=== PATIENT | female | born 1985 | race Caucasian/White ===

== ENCOUNTER 2019-05-28 09:27 | Inpatient (IN) | payer OTHER ==
[~2019-05-28] VITALS: Ht 167.6 cm; Wt 68.9 kg
--- NOTE | 2019-05-28 09:35 | NUR ---
PACIENTE REFIERE DOLOR PELVICO DESDE HACE DOS ROSAS.EVALUADA Y TRASLADADA [facility]
--- NOTE | 2019-05-28 10:45 | NUR ---
, ORIENTA AL PACIENTE SOBRE SONOGRAMA Y MUESTRAS DE TOÑA A SER COLECTADAS [place] ORDEN MEDICA. PACIENTE REFIERE ENTENDER. MR. VYAS PROCEEDE A COLECTAR LAS MUESTRAS UTILIZANDO MEDIDAS ASEPTICAS Y LAS ENVIA AL LABORATORIO. SE ORIENTA AL PACIENTE SOBRE SONOGRAMA Y PACIENTE REFIERE ENTENDER.
== END 2019-05-30 13:31 | disposition designated cancer center or children's hospital (05) | DRG 760 ==
LOC: ER 09:27 → OB/GYN 13:50
PROVIDERS: ADMIT Obstetrics & Gynecology
PROC: BU4CZZZ Ultrasonography of Uterus and Ovaries (ICD-10-PCS; 2019-05-28)
PROC: BW3GY0Z Magnetic Resonance Imaging (MRI) of Pelvic Region using Other Contrast, Unenhanced and Enhanced (ICD-10-PCS; principal; 2019-05-29)
DX: N83.291 Other ovarian cyst, right side (principal); N39.0 Urinary tract infection, site not specified; N83.292 Other ovarian cyst, left side
CPT/HCPCS: 72198

== ENCOUNTER 2020-06-01 21:24 | Emergency (ER) | payer OTHER ==
[~2020-06-01] VITALS: Ht 167.6 cm; Wt 72.6 kg
[2020-06-01] MEDS ORDERED: PRENATALES (21:36)
== END 2020-06-02 01:48 | disposition home or self-care (01) ==
LOC: ER 21:24
DX: O20.8 Other hemorrhage in early pregnancy (principal); Z3A.10 10 weeks gestation of pregnancy; Z03.818 Encounter for observation for suspected exposure to other biological agents ruled out

== ENCOUNTER 2020-06-07 23:36 | Emergency (ER) | payer OTHER ==
[~2020-06-07] VITALS: Ht 170.2 cm; Wt 72.6 kg
[~2020-06-07 23:36] MED LIST: PRENATALES
[2020-06-07] MEDS ORDERED: PANADOL (23:58)
[2020-06-08] MEDS ORDERED: ACETAMINOPHEN650 M2 PO (02:34)
== END 2020-06-08 03:15 | disposition home or self-care (01) ==
LOC: ER 23:36
DX: O46.8X1 Other antepartum hemorrhage, first trimester (principal); Z3A.10 10 weeks gestation of pregnancy; Z03.818 Encounter for observation for suspected exposure to other biological agents ruled out

== ENCOUNTER 2020-06-17 19:08 | Emergency (ER) | payer OTHER ==
[~2020-06-17] VITALS: Ht 170.2 cm; Wt 73.0 kg
[~2020-06-17 19:08] MED LIST changes: +ACETAMINOPHEN650 M2 PO; +PANADOL
== END 2020-06-17 22:56 | disposition home or self-care (01) ==
LOC: ER 19:08
DX: O20.8 Other hemorrhage in early pregnancy (principal); Z3A.12 12 weeks gestation of pregnancy

== ENCOUNTER → 2020-06-24 | Outpatient (CLI) | payer OTHER | END | disposition home or self-care (01) | LOC: PRENATAL 14:54 | PROVIDERS: ATTEND Obstetrics & Gynecology Maternal & Fetal Medicine | DX: O26.851 Spotting complicating pregnancy, first trimester (principal); O44.01 Complete placenta previa NOS or without hemorrhage, first trimester; O36.80X1 Pregnancy with inconclusive fetal viability, fetus 1; Z36.89 Encounter for other specified antenatal screening; Z3A.13 13 weeks gestation of pregnancy ==

== ENCOUNTER → 2020-08-12 | Outpatient (CLI) | payer OTHER | END | disposition home or self-care (01) | LOC: PRENATAL 08:00 | PROVIDERS: ATTEND Obstetrics & Gynecology Maternal & Fetal Medicine | DX: O35.0XX1 Maternal care for (suspected) central nervous system malformation in fetus, fetus 1 (principal); O35.3XX1 Maternal care for (suspected) damage to fetus from viral disease in mother, fetus 1; O98.512 Other viral diseases complicating pregnancy, second trimester; O44.02 Complete placenta previa NOS or without hemorrhage, second trimester; Z36.89 Encounter for other specified antenatal screening; Z3A.20 20 weeks gestation of pregnancy ==

== ENCOUNTER 2020-12-17 08:54 | Inpatient (IN) | payer OTHER ==
[~2020-12-17] VITALS: Ht 167.6 cm; Wt 83.9 kg
[2020-12-17] MEDS ORDERED: PRENATAL CAPLE1 EAC1 PO (10:14)
[2020-12-20] MEDS ORDERED: AMOX1TAB5 PO (07:47)
== END 2020-12-20 13:15 | disposition home or self-care (01) | DRG 807 ==
LOC: SURG-SUITE 08:54 → LDR 08:54 → SURG-SUITE 15:47
PROVIDERS: ADMIT Obstetrics & Gynecology; ATTEND Obstetrics & Gynecology
PROC: 10E0XZZ Delivery of Products of Conception, External Approach (ICD-10-PCS; principal; 2020-12-17)
PROC: 4A1HXFZ Monitoring of Products of Conception, Cardiac Rhythm, External Approach (ICD-10-PCS; 2020-12-17)
DX: O42.02 Full-term premature rupture of membranes, onset of labor within 24 hours of rupture (principal); O99.02 Anemia complicating childbirth; D57.3 Sickle-cell trait; Z37.0 Single live birth; Z3A.38 38 weeks gestation of pregnancy; Z20.822 Contact with and (suspected) exposure to COVID-19